=== PATIENT | female | born 1995 | race Caucasian/White ===

== ENCOUNTER 2020-02-19 06:14 | Outpatient (CLI) | payer OTHER, SELFPAY ==
[2020-02-19 17:27] LABS: SARS-CoV-2 RNA PCR Negative
== END 2020-02-19 06:15 | disposition home or self-care (01) ==
LOC: ANHCOVIDDT 06:14
PROVIDERS: Visit Provider Otolaryngology
DX: Z01.812 Encounter for preprocedural laboratory examination (principal); Z11.59 Encounter for screening for other viral diseases
CPT/HCPCS: 87635; C9803; U0003

== ENCOUNTER 2020-02-22 02:22 | Day surgery (SDC) | payer OTHER, SELFPAY ==
[2020-02-07 15:41] VITALS: BMI 26.9
--- NOTE | 2020-02-17 11:40 | PM.HPGS ---
History of Present Illness History of Present Illness Consent: Risks, benefits, and alternatives have been discussed and questions answered. Patient agrees to proceed with procedure. Chief complaint: Chronic Tonsillitis Narrative: Bibi Alford is a 24 year old female multiple episodes of tonsillitis treated with various courses of antibiotics admitted for elective tonsillectomy and a Review of Systems Review of Systems: All systems reviewed & are unremarkable except as noted in HPI and below Meds Home Medications and Allergies Home Medications Medication Instructions Recorded Confirmed Type etonogestrel 0.12 mg-ethinyl 1 vag ring VAGINAL ONCE 01/26/20 02/07/20 History estradiol 0.015 mg/24 hr vaginal ring venlafaxine 75 mg capsule,extended 75 mg PO DAILY 01/26/20 02/07/20 History release 24 hr Allergies Allergy/AdvReac Type Severity Reaction Status Date / Time No Known Allergies Allergy Verified 02/07/20 15:39 Exam HENMT: Other: has examination reveals enlarged tonsils they are markedly cryptic in nature mouth oropharynx otherwise is normal tongue is normal chest clear hilar murmurs Abusin soft tissues Zaiz negative hypertrophic tonsils and adenoids chronic tonsillitis plan tonsillectomy risks procedure been explained consent obtained
--- NOTE | 2020-02-21 13:19 | PM.HPGS ---
History of Present Illness History of Present Illness Consent: Risks, benefits, and alternatives have been discussed and questions answered. Patient agrees to proceed with procedure. Chief complaint: Chronic Tonsillitis Narrative: Bibi Alford is a 24 year old female With recurring episodes of tonsillitis been treated with various courses of antibiotics admitted for elective tonsillectomy Review of Systems Review of Systems: All systems reviewed & are unremarkable except as noted in HPI and below Meds Home Medications and Allergies Home Medications Medication Instructions Recorded Confirmed Type etonogestrel 0.12 mg-ethinyl 1 vag ring VAGINAL ONCE 01/26/20 02/07/20 History estradiol 0.015 mg/24 hr vaginal ring venlafaxine 75 mg capsule,extended 75 mg PO DAILY 01/26/20 02/07/20 History release 24 hr Allergies Allergy/AdvReac Type Severity Reaction Status Date / Time No Known Allergies Allergy Verified 02/07/20 15:39
--- NOTE | 2020-02-21 13:20 | WPDHPUPDATE1 ---
History and Physical Update Update Date/Time: 02/21/20 13:20 History and Physical has been reviewed, including an updated exam of the patient. There are NO changes in the patient's condition. Risks, benefits, and alternatives have been discussed and questions answered. Patient agrees to proceed with procedure.
[2020-02-22] VITALS (7 sets, daily range): BP systolic 117–133; BP diastolic 76–90; PULSE 58–89; RESP 14–18; TEMP 36.2; O2SAT 100
[2020-02-22] MEDS: LACTATED RINGERS 1,000 ML 30 ML IV CONT (08:00)
--- NOTE | 2020-02-22 09:06 | WPDANESEPPF ---
Anes - Initial Pre Proc Eval Procedure: Operation Date: 02/22/20 09:45 Proposed Procedures p Tonsillectomy - Angel Patel MD Date/Time: 02/22/20 09:06 Surgeon: Angel Patel MD Pre Op Diagnosis: Chronic Tonsillitis Patient Data Age: 24 Gender: F Height: 5 ft 8.6 in Weight: 82.9 kg Allergies Allergy/AdvReac Type Severity Reaction Status Date / Time No Known Allergies Allergy Verified 02/22/20 07:44 Home Medications Medication Instructions Recorded Confirmed Type etonogestrel 0.12 mg-ethinyl 1 vag ring VAGINAL ONCE 01/26/20 02/22/20 History estradiol 0.015 mg/24 hr vaginal ring venlafaxine 75 mg capsule,extended 75 mg PO DAILY 01/26/20 02/22/20 History release 24 hr Patient hx anesthesia problems: none Family hx anesthesia problems: none PMFSH Past Medical History Medical History (Updated 02/22/20 @ 09:06 by Kojo Pacheco MD) Anxiety Depression Anes - Eval Final PreProcedure Day of Procedure 02/22/20 09:06 Patient weight: normal Heart: regular rate and rhythm Lungs: clear to auscultation Airway: Mallampati scale class II Neurological: alert and oriented Last oral intake: >/= 8 hours ASA classification: II Emergent: no Anesthetic plan: proceed Anesthesia type and monitoring: general ETT and standard monitoring Informed Consent: The patient's anesthetic plan and its attendant risks and benefits were discussed with the patient/family/POA. Questions were solicited and answers provided to the satisfaction of the patient/family/POA.
--- NOTE | 2020-02-22 10:05 | PM.PROC ---
Procedure Note - Detailed Date of procedure: 02/22/20 Pre-op diagnosis: Chronic Tonsillitis Post-op diagnosis: same Procedure performed: Tonsillectomy Description of procedure: Patient was prepped and draped in usual fashion after induction of anesthesia. The McIvor mouth gag was inserted. The tonsils were removed dissection technique hemostasis was obtained electrocautery. The mouth was inspected for bleeding. When stablized patient was awaken and brought to the recovery room in good condition. Anesthesia: GLMA Surgeon: Angel Patel MD Estimated blood loss (mL): 50 Drains: No Packing: No Pathology: yes Complications: No immediate complications Condition: stable Disposition: PACU
== END 2020-02-22 12:25 | disposition home or self-care (01) ==
PROVIDERS: PCP Nurse Practitioner Family; Visit Provider Otolaryngology
PROC: (CPT 42826; principal; 2020-02-22 09:45)
DX: J03.90 Acute tonsillitis, unspecified (principal)
CPT/HCPCS: 42826; 87635; 88302; C9803; J0131; J0330; J1100; J2250; J2405; J2704; J3010; J7120; U0003